=== PATIENT | female | born 1980 ===

== ENCOUNTER 2020-01-09 09:32 | Outpatient (REF) | payer OTHER, SELFPAY | END 2020-01-09 09:33 | disposition home or self-care (01) | LOC: HO.HAP 09:32 | PROVIDERS: PCP Internal Medicine; Referring Provider Internal Medicine; Visit Provider Internal Medicine | DX: H90.3 Sensorineural hearing loss, bilateral (principal); Z46.1 Encounter for fitting and adjustment of hearing aid | CPT/HCPCS: V5011; V5020; V5160; V5261; V5264; V5266; V5267 ==

== ENCOUNTER 2020-03-12 10:55 | Outpatient (REF) | payer SELFPAY | END 2020-03-12 10:56 | disposition home or self-care (01) | LOC: HO.HAP 10:55 | PROVIDERS: Visit Provider Pediatrics | DX: Z13.89 Encounter for screening for other disorder (principal) ==

== ENCOUNTER 2020-07-25 08:42 | Outpatient (REF) | payer SELFPAY | END 2020-07-25 08:43 | disposition home or self-care (01) | LOC: HO.HAP 08:42 | PROVIDERS: Visit Provider Internal Medicine | DX: Z13.89 Encounter for screening for other disorder (principal) ==

== ENCOUNTER 2020-08-15 09:01 | Outpatient (REF) | payer SELFPAY | END 2020-08-15 09:02 | disposition home or self-care (01) | LOC: HO.HAP 09:01 | PROVIDERS: Visit Provider Internal Medicine | DX: Z13.89 Encounter for screening for other disorder (principal) ==

== ENCOUNTER 2022-08-25 09:26 | Outpatient (REF) | payer SELFPAY | END 2022-08-25 09:27 | disposition home or self-care (01) | LOC: HO.HAP 09:26 | PROVIDERS: Visit Provider Internal Medicine | DX: Z13.89 Encounter for screening for other disorder (principal) ==